=== PATIENT | male | born 1985 | race Caucasian/White ===

== ENCOUNTER 2017-01-16 17:40 | Emergency (ER) | payer OTHER ==
[2017-01-16] MEDS: APAP/OXYCODONE 325/5 TAB PO ONE (17:52)
[2017-01-16] MEDS ORDERED: APAP/OXYCODONE 325/5 TAB ONE (17:53)
[2017-01-16 17:56] VITALS: BP 136/71; PULSE 50; RESP 18; TEMP 97.6; O2SAT 100
[2017-01-16] MEDS ORDERED: LIDOCAINE HCL 2% MPF SOL ONE (18:03)
[2017-01-16] MEDS: TDAP VACCINE 0.5 ML SUS IM ONE (18:54)
[2017-01-16] MEDS ORDERED: TDAP VACCINE 0.5 ML SUS IM ONE (18:57)
== END 2017-01-16 19:08 | disposition home or self-care (01) | DRG 563 ==
LOC: ED 17:40
DX: S62.660A Nondisplaced fracture of distal phalanx of right index finger, initial encounter for closed fracture (principal); S61.310A Laceration without foreign body of right index finger with damage to nail, initial encounter; W20.8XXA Other cause of strike by thrown, projected or falling object, initial encounter
CPT/HCPCS: 73140; 90715; 99283